=== PATIENT | female | born 1995 | race Caucasian/White ===

== ENCOUNTER 2018-06-12 22:52 | Emergency (ER) | payer SELFPAY ==
[~2018-06-12] VITALS: Ht 165.1 cm; Wt 49.9 kg
--- NOTE | ~2018-06-12 | EKG ---
[place], [place] ELECTROCARDIOGRAM REPORT NAME: REINIER NEIL UNIT #: [id number] ROOM: DOCTOR: EPIPHANY DRAFT REPORT BIRTHDATE: [birth year] [facility] Test Date: 2018-06-12 Test Time: 23:02:56 Pat Name: REINIER NEIL Department: ER Room: Gender: F [employer]bler Machine Operator: Darryn Mederos : 1995 Requested By: JOSE DE JESUS DAWKINS PA-C Order Number: [id number] Reading MD: Rick Zapata MD Measurements Intervals [place] Rate: 77 P: ME: QRS: 86 QRSD: 105 T: 60 QT: 416 QTc: 471 Interpretive Statements Normal Sinus Rhythm RSR' in V1 or V2, right VCD or RVH Baseline wander in lead(s) V1 Electronically Signed On 06-13-2018 14:07:37 PDT by Rick Zapata MD CM:EKGRPT:ELECTROCARDIOGRAM REPORT [id number] JOSE DE JESUS DAWKINS PA-C EPIPHANY DRAFT REPORT JOSE DE JESUS DAWKINS PA-C
[~2018-06-12 22:52] MED LIST: CIPRO250 MG PO; DEPO PROVER150 MG/M1 IM; KEFLEX500 MG PO; PRENATAL1 TA7 PO; PRENAVITE1 TA4 PO; TYLENOL W/CODEI1 TA2 PO; ZITHROMAX Z PA250 MG PO; ZOFRAN ODT4 MG SL; Zofran4 MG PO
[2018-06-12 23:12] LABS: BASO % 0.3 % (0.0-1.0); EOS # 0.1 10*3/uL (0.0-0.4); EOS % 0.8 % (1.0-4.0); HEMATOCRIT 40.8 % (37.0-47.0); HEMOGLOBIN 14.1 g/dl (12.0-16.0); LYMPH # 3.9 10*3/uL (1.3-4.4); LYMPH % 29.5 % (27.0-41.0); MEAN CELL VOLUME 86.3 fl (81.0-99.0); MEAN CORPUSCULAR HGB 29.8 pg (27.0-31.0); MEAN CORPUSCULAR HGB CONC 34.6 g/dl (33.0-37.0); MEAN PLATELET VOLUME 10.1 fl (9.6-12.3); MONO # 0.8 10*3/uL (0.1-1.0); MONO % 5.7 % (3.0-9.0); NEUT # 8.4 10*3/uL (2.3-7.9); NEUT % 63.4 % (47.0-73.0); PLATELET COUNT AUTOMATED 210 10*3/uL (130-400); RED BLOOD COUNT 4.73 10*6/uL (4.10-5.10); RED CELL DISTRI WIDTH 14.6 % (0-14.5); WHITE BLOOD COUNT 13.3 10*3/uL (4.8-10.8)
[2018-06-12 23:23] LABS: ACT PARTIAL THROMBO TIME 27.7 SECONDS (20.8-31.5); INTERNATIONAL NORM RATIO 1.1 (2.0-3.5)
[2018-06-12 23:32] LABS: BILIRUBIN NEGATIVE (NEGATIVE); BLOOD NEGATIVE (NEGATIVE); CLARITY SL CLOUDY (CLEAR); COLOR YELLOW (YELLOW); GLUCOSE NEGATIVE (NEGATIVE); KETONE NEGATIVE (NEGATIVE); LEUKO ESTERASE TRACE (NEGATIVE); NITRITE NEGATIVE (NEGATIVE); SPECIFIC GRAVITY 1.015 (1.005-1.030); UROBILINOGEN 0.2 E.U./dl (0.2-1.0)
[2018-06-12 23:35] LABS: ALKALINE PHOSPHATASE 41 U/L (45-117); BUN 13 mg/dl (7-24); CHLORIDE 105 mmol/L (98-107); CREATININE 0.64 mg/dL (0.55-1.02); POTASSIUM 3.7 mmol/L (3.5-5.1); SGOT/AST 18 IU/L (3-35); SGPT/ALT 24 U/L (12-78); SODIUM 138 mmol/L (136-145); TOTAL PROTEIN 7.1 gm/dL (6.4-8.2)
[2018-06-12 23:36] LABS: TROPONIN I < 0.015 ng/ml (<0.045)
[2018-06-12 23:40] LABS: URINE AMPHETAMINES < 1000 (1000ng/ml); URINE BARBITURATES < 200 (200ng/ml); URINE BENZODIAZEPINES < 200 (200ng/ml); URINE CANNABINOIDS (THC) > 50 (50ng/ml); URINE COCAINE < 300 (300ng/ml); URINE METHADONE < 300 (300ng/ml); URINE OPIATES < 300 (300ng/ml)
[2018-06-12 23:46] LABS: URINE PHENCYCLIDINE < 25 (25ng/ml)
[2018-06-13 00:12] LABS: BACTERIA 1+; EPITHELIAL CELLS 35-40
== END 2018-06-13 00:50 | disposition home or self-care (01) ==
LOC: ED 22:52
PROVIDERS: Physician Assistant
DX: R07.89 Other chest pain (principal); F41.9 Anxiety disorder, unspecified; F17.200 Nicotine dependence, unspecified, uncomplicated

== ENCOUNTER → 2018-07-28 | Outpatient (CLI) | payer OTHER ==
--- NOTE | ~2018-07-28 | HM ---
[place], [place] HOLTER MONITOR REPORT NAME: REINIER NEIL UNIT #: [id number] ROOM: DOCTOR: MARLY HOGAN MD BIRTHDATE: [birth year] DOS: 07/30/2018 48-HOUR HOLTER MONITOR This is referred by nurse practitioner, Zayra Garcia. The recording was obtained from 07/28/2018 through the 07/29/2018. The recording was analyzed. This is being dictated on 07/30/2018. FINDINGS: The patient was monitored utilizing a Holter device for 48 hours. The basic rhythm was sinus with an average heart rate of 84. The heart rate in sinus rhythm varied from 48-150 beats per minute, which is a normal variation for the patient's age. She had no ventricular arrhythmias recorded in 48 hours. Specifically, there was no PVC seen and no ventricular tachycardia. The patient had a total of 45 isolated PACs and one atrial couplet in 48 hours, averaging less than 1 event per hour. There were no prolonged pauses and no SVT seen. The patient had multiple diary entries including dull pulse sensations, chest discomfort, jumping in her left chest and arm, dull pulse like pain, heart flutters, etc. These were not associated with any arrhythmia and usually associated with normal sinus rhythm. IMPRESSION: 1. Normal 48-hour Holter monitor. 2. No relation noted between the patient's multiple symptoms and any arrhythmias recorded on the monitor. MARLY HOGAN MD CM:HOLTER:HOLTER MONITOR REPORT [id number] MARLY HOGAN MD
== END | disposition home or self-care (01) ==
LOC: CARD 09:30
DX: R00.0 Tachycardia, unspecified (principal); F12.10 Cannabis abuse, uncomplicated; Z72.0 Tobacco use

== ENCOUNTER → 2018-08-20 | Outpatient (CLI) | payer OTHER ==
--- NOTE | ~2018-08-20 | PF ---
[place], [place] PULMONARY FUNCTION TEST NAME: REINIER NEIL UNIT #: [id number] ROOM: DOCTOR: CHAPIN AN MD,RAFAEL BIRTHDATE: [birth year] DOS: 08/20/2018 ORDERED BY: Zayra Garcia. HISTORY: The patient is a 23-year-old female, height of 65 inches, weight of 140 pounds, as a testing done for assessment of symptoms of shortness of breath with exertion, productive cough, frequent wheezing and tachycardia. The patient was noted tobacco use 1 pack of cigarettes per day for the past 13 years. SPIROMETRY: FVC 3.86 liters, 97% predicted value. FEV1 was 3.23 liters, 94% predicted value. Ratio of FEV1/FVC 84% post-bronchodilator, no significant changes noted in the post-bronchodilator test. Flow volume loop for the patient was essentially noted in August normal. The lung volumes, thoracic gas volume recorded as 107%, residual volume 149%, total lung capacity ____. Lung diffusion recorded 76%. The patient's airway resistance and passive conductance was normal. FINAL IMPRESSION: The patient current test was considered normal. Clinical correlation of the patient's current symptoms was advised. Possibility of current symptom related to chronic nicotine dependence may be considered likely. RAFAEL SAMSON MD CM:PFREPORT:PULMONARY FUNCTION TEST [id number] RAFAEL AN MD
== END | disposition home or self-care (01) ==
LOC: CP 06:53
DX: R00.0 Tachycardia, unspecified (principal); R05 Cough; F17.210 Nicotine dependence, cigarettes, uncomplicated; F12.10 Cannabis abuse, uncomplicated

== ENCOUNTER → 2018-09-05 | Outpatient (CLI) | payer OTHER | END | disposition home or self-care (01) | LOC: US 16:51 | DX: M79.601 Pain in right arm (principal); Z72.0 Tobacco use ==

== ENCOUNTER → 2019-03-23 | Outpatient (CLI) | payer OTHER | END | disposition home or self-care (01) | LOC: US 03-04 11:00 | DX: N92.6 Irregular menstruation, unspecified (principal) ==

== ENCOUNTER 2019-04-22 11:21 | Emergency (ER) | payer OTHER ==
[~2019-04-22] VITALS: Ht 165.1 cm; Wt 48.5 kg
[2019-04-22 12:24] LABS: BASO % 0.2 % (0.0-1.0); EOS # 0.1 10*3/uL (0.0-0.4); EOS % 0.7 % (1.0-4.0); HEMATOCRIT 42.5 % (37.0-47.0); HEMOGLOBIN 14.2 g/dl (12.0-16.0); LYMPH # 2.6 10*3/uL (1.3-4.4); LYMPH % 25.4 % (27.0-41.0); MEAN CELL VOLUME 89.1 fl (81.0-99.0); MEAN CORPUSCULAR HGB 29.8 pg (27.0-31.0); MEAN CORPUSCULAR HGB CONC 33.4 g/dl (33.0-37.0); MEAN PLATELET VOLUME 8.9 fl (9.6-12.3); MONO # 0.6 10*3/uL (0.1-1.0); MONO % 5.7 % (3.0-9.0); NEUT % 67.8 % (47.0-73.0); PLATELET COUNT AUTOMATED 240 10*3/uL (130-400); RED BLOOD COUNT 4.77 10*6/uL (4.10-5.10); RED CELL DISTRI WIDTH 14.6 % (0-14.5); WHITE BLOOD COUNT 10.4 10*3/uL (4.8-10.8)
[2019-04-22 12:38] LABS: ALBUMIN 4.4 gm/dl (3.1-4.5); ALKALINE PHOSPHATASE 41 U/L (45-117); BUN 10 mg/dl (7-24); CHLORIDE 104 mmol/L (98-107); CREATININE 0.64 mg/dL (0.55-1.02); POTASSIUM 4.3 mmol/L (3.5-5.1); SGOT/AST 13 IU/L (3-35); SGPT/ALT 17 U/L (12-78); SODIUM 137 mmol/L (136-145); TOTAL PROTEIN 7.5 gm/dL (6.4-8.2)
[2019-04-22 12:41] LABS: B-hCG (QUALITATIVE) NEGATIVE (NEGATIVE)
[2019-04-22 12:54] LABS: BILIRUBIN NEGATIVE (NEGATIVE); BLOOD NEGATIVE (NEGATIVE); CLARITY CLOUDY (CLEAR); COLOR YELLOW (YELLOW); GLUCOSE NEGATIVE (NEGATIVE); KETONE NEGATIVE (NEGATIVE); LEUKO ESTERASE NEGATIVE (NEGATIVE); NITRITE NEGATIVE (NEGATIVE); PH 7.5 (5.0-9.0); SPECIFIC GRAVITY 1.015 (1.005-1.030); UROBILINOGEN 0.2 E.U./dl (0.2-1.0)
[2019-04-22 13:13] LABS: BACTERIA 2+; EPITHELIAL CELLS 15-20
== END 2019-04-22 13:54 | disposition home or self-care (01) ==
LOC: ED 11:21
PROVIDERS: Emergency Medicine
DX: M54.9 Dorsalgia, unspecified (principal); F17.200 Nicotine dependence, unspecified, uncomplicated; M79.7 Fibromyalgia

== ENCOUNTER 2020-01-11 12:09 | Emergency (ER) | payer OTHER ==
[~2020-01-11] VITALS: Ht 165.1 cm; Wt 56.7 kg
[2020-01-11 13:31] LABS: BASO % 0.3 % (0.0-1.0); EOS % 0.4 % (1.0-4.0); HEMATOCRIT 43.3 % (37.0-47.0); LYMPH % 17.9 % (27.0-41.0); MEAN CELL VOLUME 90.8 fl (81.0-99.0); MEAN CORPUSCULAR HGB 31.4 pg (27.0-31.0); MEAN CORPUSCULAR HGB CONC 34.6 g/dl (33.0-37.0); MEAN PLATELET VOLUME 8.6 fl (9.6-12.3); MONO # 0.8 10*3/uL (0.1-1.0); MONO % 6.9 % (3.0-9.0); NEUT # 8.5 10*3/uL (2.3-7.9); NEUT % 74.2 % (47.0-73.0); PLATELET COUNT AUTOMATED 251 10*3/uL (130-400); RED BLOOD COUNT 4.77 10*6/uL (4.10-5.10); RED CELL DISTRI WIDTH 14.1 % (0-14.5); WHITE BLOOD COUNT 11.4 10*3/uL (4.8-10.8)
[2020-01-11 13:42] LABS: ACT PARTIAL THROMBO TIME 27.7 SECONDS (20.0-32.1)
[2020-01-11 13:45] LABS: ALBUMIN 4.4 gm/dl (3.1-4.5); ALKALINE PHOSPHATASE 54 U/L (45-117); BUN 10 mg/dl (7-24); CHLORIDE 104 mmol/L (98-107); CREATININE 0.72 mg/dL (0.55-1.02); LIPASE 130 U/L (73-393); POTASSIUM 3.4 mmol/L (3.5-5.1); SGOT/AST 23 IU/L (3-35); SGPT/ALT 22 U/L (12-78); SODIUM 136 mmol/L (136-145); TOTAL PROTEIN 7.7 gm/dL (6.4-8.2)
[2020-01-11 13:47] LABS: BETA-HCG, QUANT < 1.0 mIU/mL (1-3); TROPONIN I < 0.015 ng/ml (<0.045)
== END 2020-01-11 15:07 | disposition home or self-care (01) ==
LOC: ED 12:09
PROVIDERS: Emergency Medicine
DX: R20.0 Anesthesia of skin (principal); R20.2 Paresthesia of skin; F41.9 Anxiety disorder, unspecified

== ENCOUNTER → 2020-03-18 | Outpatient (CLI) | payer OTHER | END | disposition home or self-care (01) | LOC: RAD 11:00 | DX: M54.2 Cervicalgia (principal); M54.12 Radiculopathy, cervical region; M62.830 Muscle spasm of back ==

== ENCOUNTER 2020-12-24 20:19 | Emergency (ER) | payer OTHER ==
[~2020-12-24] VITALS: Ht 165.1 cm; Wt 56.7 kg
[2020-12-24] MEDS ORDERED: CYMBALTA60 MG PO (20:41)
[2020-12-24] MEDS ORDERED: HYDRALAZINE10 MG PO (20:44)
[2020-12-24 21:31] LABS: BASO % 0.2 % (0.0-1.0); EOS % 0.1 % (1.0-4.0); HEMATOCRIT 43.2 % (37.0-47.0); LYMPH # 1.2 10*3/uL (1.3-4.4); LYMPH % 9.4 % (27.0-41.0); MEAN CELL VOLUME 100.5 fl (81.0-99.0); MEAN CORPUSCULAR HGB 35.1 pg (27.0-31.0); MEAN PLATELET VOLUME 9.5 fl (9.6-12.3); MONO # 0.8 10*3/uL (0.1-1.0); MONO % 6.4 % (3.0-9.0); NEUT # 10.6 10*3/uL (2.3-7.9); NEUT % 83.6 % (47.0-73.0); PLATELET COUNT AUTOMATED 232 10*3/uL (130-400); RED CELL DISTRI WIDTH 15.9 % (0-14.5); WHITE BLOOD COUNT 12.7 10*3/uL (4.8-10.8)
[2020-12-24 21:39] LABS: BILIRUBIN 1+ (Negative); BLOOD Negative (Negative); CLARITY Clear (Clear); COLOR Dark Yellow (Yellow); GLUCOSE Negative (Negative); KETONE 1+ (Negative); LEUKO ESTERASE 1+ (Negative); NITRITE Negative (Negative); SPECIFIC GRAVITY 1.025 (1.001-1.030)
[2020-12-24 21:46] LABS: ALBUMIN 3.6 gm/dl (3.1-4.5); ALKALINE PHOSPHATASE 174 U/L (45-117); BUN 7 mg/dl (7-24); CHLORIDE 102 mmol/L (98-107); CREATININE 0.78 mg/dL (0.55-1.02); POTASSIUM 3.5 mmol/L (3.5-5.1); SGOT/AST 286 IU/L (3-35); SGPT/ALT 192 U/L (12-78); SODIUM 139 mmol/L (136-145)
[2020-12-24 21:52] LABS: PH >= 9.0 (4.5-8.0)
[2020-12-24 21:54] LABS: BACTERIA 2+; MUCOUS 2+; RBC 0-2 rbc/hpf (0-2); WBC 16-20 wbc/hpf (0-5)
[2020-12-24] MEDS ORDERED: CEPHALEXIN500 M1 PO (22:17)
== END 2020-12-24 22:50 | disposition home or self-care (01) ==
LOC: ED 20:19
PROVIDERS: Emergency Medicine
DX: R11.10 Vomiting, unspecified (principal); N39.0 Urinary tract infection, site not specified; F17.200 Nicotine dependence, unspecified, uncomplicated

== ENCOUNTER 2021-06-29 08:09 | Emergency (ER) | payer OTHER ==
[~2021-06-29] VITALS: Wt 61.2 kg
[~2021-06-29 08:09] MED LIST changes: +CEPHALEXIN500 M1 PO; +CYMBALTA60 MG PO; +HYDRALAZINE10 MG PO
== END 2021-06-29 10:49 | disposition home or self-care (01) ==
LOC: ED 08:09
DX: U07.1 COVID-19 (principal)

== ENCOUNTER 2022-02-05 20:32 | Emergency (ER) | payer OTHER | END 2022-02-05 22:19 | disposition home or self-care (01) | LOC: ED 20:32 | DX: R07.81 Pleurodynia (principal) ==

== ENCOUNTER 2022-11-15 08:53 | Emergency (ER) | payer OTHER ==
[~2022-11-15] VITALS: Ht 165.1 cm; Wt 63.5 kg
[2022-11-15 09:39] LABS: BASO % 0.3 % (0.0-1.0); EOS # 0.1 10*3/uL (0.0-0.4); EOS % 0.8 % (1.0-4.0); HEMATOCRIT 37.7 % (37.0-47.0); LYMPH # 2.8 10*3/uL (1.3-4.4); LYMPH % 30.3 % (27.0-41.0); MEAN CORPUSCULAR HGB 31.2 pg (27.0-31.0); MEAN CORPUSCULAR HGB CONC 32.9 g/dl (33.0-37.0); MEAN PLATELET VOLUME 8.7 fl (9.6-12.3); MONO # 0.6 10*3/uL (0.1-1.0); MONO % 6.6 % (3.0-9.0); NEUT # 5.6 10*3/uL (2.3-7.9); NEUT % 61.8 % (47.0-73.0); PLATELET COUNT AUTOMATED 252 10*3/uL (130-400); RED BLOOD COUNT 3.97 10*6/uL (4.10-5.10); RED CELL DISTRI WIDTH 14.2 % (0-14.5); WHITE BLOOD COUNT 9.1 10*3/uL (4.8-10.8)
[2022-11-15 09:55] LABS: ALKALINE PHOSPHATASE 47 U/L (46-116); BUN 11 mg/dl (9-23); CHLORIDE 107 mmol/L (98-107); POTASSIUM 3.5 mmol/L (3.4-5.1)
[2022-11-15 09:56] LABS: SGPT/ALT < 7 U/L (10-49)
[2022-11-15] MEDS ORDERED: PROCTOFOAM15 GM R (10:20)
== END 2022-11-15 10:18 | disposition home or self-care (01) ==
LOC: ED 08:53
PROVIDERS: Student in an Organized Health Care Education/Training Program
DX: K92.2 Gastrointestinal hemorrhage, unspecified (principal)

== ENCOUNTER → 2023-08-27 | Outpatient (CLI) | payer OTHER ==
[~2023-08-27] MED LIST changes: +PROCTOFOAM15 GM R
== END | disposition home or self-care (01) ==
LOC: US 14:51
PROVIDERS: ATTEND Nurse Practitioner Women's Health
DX: Z34.81 Encounter for supervision of other normal pregnancy, first trimester (principal); Z3A.00 Weeks of gestation of pregnancy not specified

== ENCOUNTER 2023-08-30 10:26 | Emergency (ER) | payer OTHER ==
[~2023-08-30] VITALS: Ht 165.1 cm; Wt 54.4 kg
[2023-08-30 10:59] LABS: BASO % 0.1 % (0.0-1.0); EOS # 0.1 10*3/uL (0.0-0.4); EOS % 0.6 % (1.0-4.0); HEMATOCRIT 40.9 % (37.0-47.0); LYMPH # 2.1 10*3/uL (1.3-4.4); LYMPH % 14.9 % (27.0-41.0); MEAN CELL VOLUME 94.2 fl (81.0-99.0); MEAN CORPUSCULAR HGB 30.6 pg (27.0-31.0); MEAN CORPUSCULAR HGB CONC 32.5 g/dl (33.0-37.0); MEAN PLATELET VOLUME 8.4 fl (9.6-12.3); MONO # 0.7 10*3/uL (0.1-1.0); MONO % 5.1 % (3.0-9.0); NEUT # 10.9 10*3/uL (2.3-7.9); NEUT % 78.9 % (47.0-73.0); PLATELET COUNT AUTOMATED 286 10*3/uL (130-400); RED BLOOD COUNT 4.34 10*6/uL (4.10-5.10); RED CELL DISTRI WIDTH 13.5 % (0-14.5); WHITE BLOOD COUNT 13.8 10*3/uL (4.8-10.8)
[2023-08-30 11:37] LABS: ALKALINE PHOSPHATASE 52 U/L (46-116); BUN 15 mg/dl (9-23); CHLORIDE 106 mmol/L (98-107); POTASSIUM 4.1 mmol/L (3.4-5.1); SGPT/ALT < 7 U/L (5-49); TOTAL PROTEIN 6.5 gm/dL (6.0-8.0)
== END 2023-08-30 11:59 | disposition home or self-care (01) ==
LOC: ED 10:26
PROVIDERS: Emergency Medicine
DX: O46.91 Antepartum hemorrhage, unspecified, first trimester (principal); F41.9 Anxiety disorder, unspecified; R10.2 Pelvic and perineal pain; Z3A.01 Less than 8 weeks gestation of pregnancy; Z98.890 Other specified postprocedural states

== ENCOUNTER → 2023-09-06 | Outpatient (CLI) | payer OTHER | END | disposition home or self-care (01) | LOC: LAB 12:07 | PROVIDERS: ATTEND Nurse Practitioner Women's Health | DX: Q28.3 Other malformations of cerebral vessels (principal) ==

== ENCOUNTER 2025-04-15 11:25 | Emergency (ER) | payer SELFPAY ==
[~2025-04-15] VITALS: Ht 165.1 cm; Wt 54.4 kg
[2025-04-15] MEDS ORDERED: SODIUM CHLORIDE 0.9% 1,000 ML IV ONE (11:35)
[2025-04-15 12:09] LABS: BASO # 0.0 10*3/uL (0.0-0.1); BASO % 0.3 % (0.0-1.0); EOS # 0.1 10*3/uL (0.0-0.4); EOS % 0.6 % (1.0-4.0); MEAN CELL VOLUME 95.7 fl (81.0-99.0); MEAN CORPUSCULAR HGB 31.3 pg (27.0-31.0); MEAN PLATELET VOLUME 8.5 fl (9.6-12.3); MONO # 0.6 10*3/uL (0.1-1.0); MONO % 4.4 % (3.0-9.0); NEUT # 8.9 10*3/uL (2.3-7.9); NEUT % 71.4 % (47.0-73.0); NUCLEATED RED BLOOD CELL 0.0 % (0.0-0.0); NUCLEATED RED BLOOD CELL 0.0 10*3/uL (0.0-0.0); PLATELET COUNT AUTOMATED 360 10*3/uL (130-400); RED CELL DISTRI WIDTH 13.5 % (0-14.5)
[2025-04-15 12:48] LABS: BUN 6 mg/dl (9-23)
[2025-04-15 12:53] LABS: ETHYL ALCOHOL 341.6 mg/dl (<3)
== END 2025-04-15 17:49 | disposition short-term general hospital (02) ==
LOC: ED 11:25
PROVIDERS: Nurse Practitioner Family
DX: S02.32XA Fracture of orbital floor, left side, initial encounter for closed fracture (principal); S02.832A Fracture of medial orbital wall, left side, initial encounter for closed fracture; F10.129 Alcohol abuse with intoxication, unspecified; Z79.899 Other long term (current) drug therapy; Y04.2XXA Assault by strike against or bumped into by another person, initial encounter; Y93.89 Activity, other specified; Y92.89 Other specified places as the place of occurrence of the external cause; Y99.8 Other external cause status